=== PATIENT | female | born 1985 | race Hispanic/Latino ===

== ENCOUNTER 2021-10-28 02:39 | Emergency (ER) | payer MEDICAID ==
--- NOTE | 2021-10-28 03:19 | Emergency Department Report ---
<LEXA MORGAN - Last Filed: 10/28/21 05:38> History of Present Illness - General Chief Complaint: Overdose Stated Complaint: OD Time Seen by Provider: 10/28/21 02:57 - History of Present Illness Initial Comments: Patient is a 36-year-old female with past medical history of GHB abuse who is presenting status post overdose. Paramedics state the initial call was for suicidal ideations. On their arrival patient was unconscious. Narcan was given with no response. It was assumed because of the history given that the patient is overdosed on GHB. Treatments Prior to Arrival: narcan (Patient had minimal gag and was only breathing approximately 5 times a minute. Attempt was made to intubate the patient however was unsuccessful. Nasal trumpet was placed and the patient is was given supplemental oxygen and her O2 sats remained 100%), other - Related Data Allergies Allergy/AdvReac Type Severity Reaction Status Date / Time Unable to Assess Allergy Unverified 10/28/21 03:26 ED Review of Systems Comment: Unobtainable due to pts medical conditions ED Physical Exam - General General appearance: alert, in no apparent distress - Head Head exam: Present: atraumatic, normocephalic - Eye Eye exam: Present: normal appearance, PERRL, EOMI - ENT ENT exam: Present: mucous membranes moist - Neck Neck exam: Present: normal inspection - Respiratory Respiratory exam: Present: normal lung sounds bilaterally. Absent: respiratory distress, wheezes, rales, rhonchi - Cardiovascular Cardiovascular Exam: Present: regular rate, normal rhythm, normal heart sounds. Absent: systolic murmur, diastolic murmur, rubs, gallop - GI/Abdominal GI/Abdominal exam: Present: soft, normal bowel sounds. Absent: distended, tenderness, guarding, rebound - Extremities Exam Extremities exam: Present: normal inspection - Back Exam Back exam: Present: normal inspection - Neurological Exam Neurological exam: Present: alert, oriented X3 - Psychiatric Psychiatric exam: Present: normal affect, normal mood - Skin Skin exam: Present: warm, dry, intact, normal color. Absent: rash ED Course - Reevaluation(s) Reevaluation #1: 10/28/21 03:20 On arrival the patient is breathing between 5 and 7 times a minute. She has a minimal gag and anytime the nasal trumpet is moved the patient actually moves both of her arms in a purposeful manner. Made the decision to not intubate the patient at this time to monitor her. Reevaluation #2: 10/28/21 04:56 Patient still altered but is now yelling and thrashing about the bed. Placed the patient in soft restraints. She is breathing more vigorously now taken out the nasal cannula. Patient has a strong gag. We'll continue to monitor the patient. Patient made a 1013 Reevaluation #3: 10/28/21 05:38 Patient's lungs are clear and O2 sat is 100%. Reviewed the patient's chest x- ray which shows patchy infiltrates bilaterally. Is possible that the patient aspirated since she did vomit several times prior to arrival. CHEST 1 VIEW INDICATION / CLINICAL INFORMATION: possible aspiration. COMPARISON: 08/25/2020 FINDINGS: SUPPORT DEVICES: None. HEART / MEDIASTINUM: No significant abnormality. LUNGS / PLEURA: Mild interstitial prominence is present bilaterally. The appearance is more suggestive of mild interstitial pulmonary edema. No focal area of consolidation or pleural effusion. No pneumothorax. ADDITIONAL FINDINGS: No significant additional findings. IMPRESSION: 1. Mild bilateral interstitial prominence. This could be secondary to mild interstitial pulmonary edema or infectious etiologies such as viral pneumonia. Clinical correlation is recommended. 2. No evidence of aspiration pneumonia at this time. ED Medical Decision Making - Lab Data Result diagrams: 10/28/21 04:05 10/28/21 04:05 - EKG Data -: EKG Interpreted by Wa - EKG Data 10/28/21 03:28 EKG shows a sinus bradycardia with a rate of 52. [place] normal. Intervals normal. No ST segment elevations or depressions. Time interpretation of 0255 ED Disposition Clinical Impression: Drug overdose, Gammahydroxy butarate (GHB) use disorder, mild, Accidental drug overdose Disposition: 01 HOME / SELF CARE / HOMELESS Condition: Stable Instructions: Accidental Drug Poisoning, Adult Referrals: CRYSTAL CLOUD MD [Staff Physician] - as needed <CEDRIC MORGAN - Last Filed: 10/28/21 12:51> ED Review of Systems ROS: Stated complaint: OD Other details as noted in HPI ED Course Vital Signs 10/28/21 10/28/21 10/28/21 03:07 03:15 03:30 Temperature 98.2 F Pulse Rate 51 L 51 L 49 L Respiratory 9 L 9 L 8 L Rate Blood Pressure 128/81 128/77 Blood Pressure 112/51 [Right] O2 Sat by Pulse 100 100 100 Oximetry 10/28/21 10/28/21 10/28/21 03:45 04:00 04:30 Temperature Pulse Rate 49 L 53 L 76 Respiratory 9 L 11 L 15 Rate Blood Pressure 142/77 133/63 125/64 Blood Pressure [Right] O2 Sat by Pulse 100 100 100 Oximetry 10/28/21 10/28/21 10/28/21 05:01 05:15 05:31 Temperature Pulse Rate 79 78 82 Respiratory 19 19 13 Rate Blood Pressure 125/64 129/97 103/42 Blood Pressure [Right] O2 Sat by Pulse 93 90 99 Oximetry 10/28/21 10/28/21 10/28/21 05:45 06:00 06:45 Temperature Pulse Rate 75 104 H 79 Respiratory 18 15 18 Rate Blood Pressure 103/42 100/69 100/69 Blood Pressure [Right] O2 Sat by Pulse 100 100 98 Oximetry 10/28/21 10/28/21 10/28/21 07:00 07:15 07:31 Temperature Pulse Rate 80 81 90 Respiratory 20 15 18 Rate Blood Pressure 108/69 108/69 108/69 Blood Pressure [Right] O2 Sat by Pulse 98 100 100 Oximetry 10/28/21 10/28/21 10/28/21 07:45 08:00 08:15 Temperature Pulse Rate 94 H 82 76 Respiratory 15 13 16 Rate Blood Pressure 108/69 109/68 109/68 Blood Pressure [Right] O2 Sat by Pulse 100 100 100 Oximetry 10/28/21 10/28/21 10/28/21 08:30 08:45 09:00 Temperature Pulse Rate 71 76 81 Respiratory 20 18 17 Rate Blood Pressure 123/71 123/71 114/66 Blood Pressure [Right] O2 Sat by Pulse 99 100 100 Oximetry 10/28/21 10/28/21 10/28/21 09:15 09:30 09:45 Temperature Pulse Rate 82 79 78 Respiratory 19 17 20 Rate Blood Pressure 114/66 120/68 120/68 Blood Pressure [Right] O2 Sat by Pulse 100 100 100 Oximetry 10/28/21 10/28/21 10/28/21 10:00 10:15 10:30 Temperature Pulse Rate 80 90 79 Respiratory 19 19 19 Rate Blood Pressure 113/62 113/62 111/53 Blood Pressure [Right] O2 Sat by Pulse 100 100 100 Oximetry 10/28/21 10/28/21 10/28/21 10:45 11:00 11:15 Temperature Pulse Rate 80 90 94 H Respiratory 14 19 12 Rate Blood Pressure 111/53 115/73 115/73 Blood Pressure [Right] O2 Sat by Pulse 100 100 100 Oximetry 10/28/21 10/28/21 10/28/21 11:30 11:45 12:00 Temperature Pulse Rate 99 H 79 82 Respiratory 21 19 19 Rate Blood Pressure 112/59 112/59 103/73 Blood Pressure [Right] O2 Sat by Pulse 100 99 100 Oximetry ED Medical Decision Making - Lab Data Result diagrams: 10/28/21 04:05 10/28/21 04:05 - Radiology Data Radiology results: report reviewed Equivocal findings on chest radiograph. Antibiotics not necessary at this time. Patient will need outpatient Covid testing. - Medical Decision Making Patient awake alert. She is appropriate. She does not have any needs at this time. She admitted to "taking too much GHB". She denies suicidal ideation or suicide attempt. Patient cleared by mental health team. She does have history of depression, anxiety and borderline personality disorder. Patient is discharged home. Critical care attestation.: If time is entered above; I have spent that time in minutes in the direct care of this critically ill patient, excluding procedure time. ED Disposition Is pt being admited?: No Does the pt Need Aspirin: No
[2021-10-28 03:22] LABS: Bilirubin,Urine NEG (Negative); Blood,Urine SM (Negative); Color,Urine Yellow (Yellow); Mucus,Urine FEW /HPF; Protein,Urine <15 mg/dL mg/dL (Negative); RBC,Urine < 1.0 /HPF (0.0-6.0); Urobilinogen,Urine < 2.0 mg/dL (<2.0)
[2021-10-28 03:28] LABS: Benzodiazepines Screen,Urine Negative; Cannabinoid Screen,Urine Negative; Cocaine Screen,Urine Negative; Methadone Screen,Urine Negative; Opiate Screen,Urine Negative
[2021-10-28 03:56] LABS: Amphetamine Screen,Urine Positive
[2021-10-28 04:28] LABS: Basophils % (Auto) 0.6 % (0.0-1.8); Eosinophils # (Auto) 0.1 K/mm3 (0.0-0.4); Eosinophils % (Auto) 1.7 % (0.0-4.3); Lymphocytes # (Auto) 1.3 K/mm3 (1.2-5.4); Lymphocytes % (Auto) 16.8 % (13.4-35.0); Mean Corpuscular HGB Conc 30 % (30-34); Monocytes # (Auto) 0.5 K/mm3 (0.0-0.8); Platelet Count 192 K/mm3 (140-440); Red Blood Count 5.61 M/mm3 (3.65-5.03); Red Cell Distribution Width 17.4 % (13.2-15.2)
[2021-10-28 04:31] LABS: Hematocrit 38.6 % (30.3-42.9); Hemoglobin 11.5 gm/dl (10.1-14.3); Mean Corpuscular Volume 69 fl (79-97)
--- NOTE | 2021-10-28 04:35 | XRay Report ---
CHEST 1 VIEW INDICATION / CLINICAL INFORMATION: possible aspiration. COMPARISON: 08/25/2020 FINDINGS: SUPPORT DEVICES: None. HEART / MEDIASTINUM: No significant abnormality. LUNGS / PLEURA: Mild interstitial prominence is present bilaterally. The appearance is more suggestiv e of mild interstitial pulmonary edema. No focal area of consolidation or pleural effusion. No pneumo thorax. ADDITIONAL FINDINGS: No significant additional findings. IMPRESSION: 1. Mild bilateral interstitial prominence. This could be secondary to mild interstitial pulmonary meme ma or infectious etiologies such as viral pneumonia. Clinical correlation is recommended. 2. No evidence of aspiration pneumonia at this time. Signer Name: Adri Laird MD Signed: 10/28/2021 4:31 AM Workstation Name: [id number]
[2021-10-28 04:44] LABS: Blood Urea Nitrogen 13 mg/dL (7-17); Calcium 8.7 mg/dL (8.4-10.2); Hemolysis Index 3
[2021-10-28 04:51] LABS: BUN/Creatinine Ratio 19
[2021-10-28] MEDS ORDERED: CLINDAMYCIN 600 MG/50 mL 600 MG/50 ML BAG IV ONE (05:37)
[2021-10-28] MEDS ORDERED: cefTRIAXone/NS 2 GM/100 ML 2 GM/100 ML BAG IV ONE (05:37)
--- NOTE | 2021-10-28 11:41 | Consultation ---
History of Present Illness - Reason for Consult Consult date: 10/28/21 Reason for consult: OD - History of Present Psychiatric Illness The patient was seen today. She is calm and cooperative. She says she took too much GHB. The patient says "it gets you drunk." When asking was she attempt suicide, the patient replies "no, I was trying to get high and libertarian. It was the New Year. I took too much by mistake." The patient also says she uses methamphetamines. She says she has a history of depression, anxiety and borderline personality disorder. She says she takes her meds. The patient denies any SI/HI. She says "again, I took too much by mistake." She denies hallucin ations of any kind. The patient says she is unemployed, single and lives with someone. REVIEW OF SYSTEMS Constitutional: Negative for weight loss ENT: Negative for stridor Respiratory: Negative for cough or hemoptysis All other systems reviewed and are negative MENTAL STATUS EXAMINATION General Appearance and Behavior: Age appropriate, good hygiene, wearing appropriate clothes. calm, cooperative Cooperation: Cooperative Psychomotor Behavior: Psychomotor normal Mood: fine Affect and affective range: congruent with stated mood Thought Process: goal directed Thought Content: None Speech: Normal tone and pace Suicidal Ideation: Denies Homicidal Ideation: Denies Hallucinations: Denies Delusions: Denies Impulse Control: Limited Insight and Judgment: Limited insight and fair judgment Memory: Limited Attention: distracted Orientation: a/o x 3 Assessment (1) Unintentional Overdose Current Visit: Yes Status: Acute Treatment Plan d/c 1013 Continue previously prescribed meds Medical: per primary Disposition: Do not recommend acute psychiatric inpatient treatment. The patient understands that if SI/HI or any fear of endangerment arise she is to seek immediate assistance. The poultice machine operator to give the patient all necessary resources and further discuss safety plan The patient to abstain from all illicit drug use She is to follow up in 7 to 14 days upon discharge Will sign off. Thanks Case staffed with Dr. Perez Medications and Allergies Allergies Allergy/AdvReac Type Severity Reaction Status Date / Time Unable to Assess Allergy Unverified 10/28/21 03:26 Mental Status Exam - Vital signs Last Vital Signs Temp 98.2 F 10/28/21 03:07 Pulse 94 H 10/28/21 07:45 Resp 15 10/28/21 07:45 BP 108/69 10/28/21 07:45 Pulse Ox 100 10/28/21 07:45 Results Result Diagrams: 10/28/21 04:05 10/28/21 04:05 Abnormal lab results 10/28/21 10/28/21 10/28/21 Range/Units 04:05 04:05 04:05 RBC 5.61 H (3.65-5.03) M/mm3 MCV 69 L (79-97) fl MCH 21 L (28-32) pg RDW 17.4 H (13.2-15.2) % Seg Neutrophils % 74.9 H (40.0-70.0) % Glucose 139 H (65-100) mg/dL Salicylates < 0.3 L (2.8-20.0) mg/dL Acetaminophen (10.0-30.0) ug/mL 10/28/21 Range/Units 04:05 RBC (3.65-5.03) M/mm3 MCV (79-97) fl MCH (28-32) pg RDW (13.2-15.2) % Seg Neutrophils % (40.0-70.0) % Glucose (65-100) mg/dL Salicylates (2.8-20.0) mg/dL Acetaminophen 5.0 L (10.0-30.0) ug/mL All other labs normal.
[2021-10-28 13:35] VITALS: BP 110/74
--- NOTE | 2021-10-29 08:47 | Electrocardiograph Report ---
[facility] Test Date: 2021-10-28 Test Time: 02:53:39 Pat Name: DIAMOND GODWIN Department: Room: Gender: F Oil Developer: LUIS MIGUEL : 1985 Requested By: CEDRIC MORGAN Order Number: [id number] Reading MD: Omi Moyer Measurements Intervals [place] Rate: 52 P: 28 NM: 161 QRS: 57 QRSD: 103 T: 54 QT: 505 QTc: 472 Interpretive Statements Sinus rhythm Nonspecific T abnormalities, anterior leads No previous ECG available for comparison Electronically Signed On 10-29-2021 8:47:34 EST by Omi Moyer
== END 2021-10-28 13:05 | disposition home or self-care (01) ==
LOC: ED 02:39
DX: T65.91XA Toxic effect of unspecified substance, accidental (unintentional), initial encounter (principal); T50.901A Poisoning by unspecified drugs, medicaments and biological substances, accidental (unintentional), initial encounter; Z20.822 Contact with and (suspected) exposure to COVID-19
CPT/HCPCS: 36415; 71045; 80048; 80307; 81001; 85025; 87040; 93005; 96365; 96367; 99284; J0696; J7502; U0003; 80320; G0480